=== PATIENT | male | born 1985 | race Caucasian/White ===

== ENCOUNTER 2018-07-16 04:27 | Emergency (ER) | payer OTHER, SELFPAY ==
[2018-07-16 04:29] VITALS: BP 143/95; PULSE 92; RESP 16; TEMP 36.5; O2SAT 98
--- NOTE | 2018-07-16 04:39 | ED.GENADUL_ITS ---
Discharge Plan Disposition Patient Disposition: HOME Condition: Stable Discharge Details Chief Complaint: Sorethroat Clinical Impression: Pharyngitis Primary Care Provider: Maricarmen Osorio ED Provider: Rachel Driver Home Meds and New Rx's Prescriptions: New amoxicillin 500 mg tablet 500 mg PO BID 10 Days Qty: 20 RF: 0 Continued albuterol sulfate [ProAir HFA] 90 mcg/actuation Hfa Aerosol Inhaler 2 puff Inhalation PRN PRNRF: 0 naproxen sodium [Aleve] 220 mg Tablet 220 mg PO BID PRNRF: 0 Discharge Instructions Instructions: Pharyngitis (ED) Additional Instructions: Alternate Tylenol and Motrin as needed and directed for pain. If you have no improvement of symptoms in the next 2 days, you may start the antibiotics. Gargle with salt water and drink plenty of fluids and get plenty of rest. Follow-up with your primary care doctor in 2 days for reevaluation. Return immediately to the emergency department with any worsening or new concerning symptoms. Stand Alone Forms: Work Release Discharge Data Discharge Physician: Rachel Driver Medical Decision Making 33-year-old male presents with sore throat for the past 3 days. No known fever. No significant cough. Blood pressure mildly hypertensive. Heart rate 90s. Afebrile. Patient appears nontoxic. He is able to speak in full sentences, no drooling, no trismus, no submandibular swelling. He does have posterior pharyngeal erythema and mild to moderate bilateral tonsillar swelling but no evidence of tonsillar abscess and uvula is midline. He has left tender anterior cervical lymphadenopathy. Rapid strep is negative. I suspect based on patient's exam, he likely does have strep throat. Throat culture sent. Patient was given a prescription for antibiotics to start if symptoms not improve or worsen. He states he likely plans on starting the antibiotics now. He is instructed to follow with his primary care doctor for reevaluation and to return here if worse. Medical Records Medical records reviewed: Yes I reviewed the patient's medical records. Lab Data Lab results reviewed: Yes I reviewed the patient's lab results. Rapid strep negative. HPI General Mode of arrival: ambulatory . Date/Time Provider Initiated Documentation: 07/16/18 04:36 . Limitations to Documentation: no limitations . Information obtained by: patient . HPI Narrative: Patient is a 33-year-old male presents with sore throat for the past few days. Admits to pain with swallowing but has been able to eat and drink. He denies any known fever. Last dose of ibuprofen 9:00 last night. Related Data Home Medications Medication Instructions Recorded Confirmed albuterol sulfate [ProAir HFA] 2 puff INHALATION PRN PRN 07/16/18 07/16/18 amoxicillin 500 mg PO BID 10 Days #20 tab 07/16/18 naproxen sodium [Aleve] 220 mg PO BID PRN 07/16/18 07/16/18 Previous Rx's Medication Instructions Recorded amoxicillin 500 mg PO BID 10 Days #20 tab 07/16/18 Allergies Allergy/AdvReac Type Severity Reaction Status Date / Time No Known Allergies Allergy Unverified 07/16/18 04:31 General Stated Complaint: Sorethroat COLT: 4 Review of Systems Review of Systems All systems reviewed & are unremarkable except as noted in HPI and below Constitutional Reports as per HPI, Denies chills and Denies fever(s) Eyes Denies blurry vision ENT Denies dizziness, Reports sore throat and Denies throat swelling Cardiovascular Denies chest pain and Denies dyspnea Respiratory Denies cough and Denies dyspnea Gastrointestinal Denies abdominal pain, Denies diarrhea and Denies vomiting Genitourinary Denies hematuria and Denies dysuria Musculoskeletal Denies back pain and Denies numbness Integumentary/Breasts Denies lesions and Denies rash Neurologic Denies dizziness, Denies focal weakness and Denies numbness Allergic/Immunologic Denies throat swelling PFSH Medical History Asthma (Chronic) Surgical History No significant past surgical history (Acute) Social History Smoking/Tobacco Use Status: Current every day Tobacco Type: cigarettes Alcohol Intake: current Alcohol Intake frequency: holidays/special occasions only Substance use type: does not use Exam Const General: cooperative and healthy appearing Orientation: alert and awake HENMT Head: normal to inspection Ears: hearing grossly normal bilaterally, external ears normal and TM's normal bilaterally General nose exam: external nose normal Face and sinus: normal facial exam Mouth: oral mucosae normal Teeth and gingiva: dentition normal Throat: uvula midline, no peritonsillar masses and posterior oropharynx abnormal edema and erythema; no exudates Eyes General: appearance normal, both eyes and all related structures Eyelids: eyelids normal Pupils: PERRL EOM: EOM intact bilaterally Neck Neck: normal visual inspection and lymphadenopathy (L anterior cervical tender) Chest Chest: normal inspection of the chest Resp Effort & Inspection: normal respiratory effort and able to speak in complete sentences Auscultation: clear to auscultation bilaterally Cardio Rate: regular rate Rhythm: regular rhythm GI Inspection: normal to inspection Palpation: soft, not firm, no guarding, no hepatosplenomegaly, no masses and nontender Auscultation: normal bowel sounds Skin General skin exam: no rashes or lesions noted Neuro General: alert and awake Cognition: normal cognition Speech: speech normal Gait: normal gait Motor: muscle tone normal throughout Sensory Exam: no sensory deficits noted Extrem General: normal to inspection, full ROM and normal capillary refill Psych Appearance: grossly normal Mental Status: mental status grossly normal Speech and Movement: speech and movement normal Affect: normal affect Thought Process: normal Course Vital Signs Temperature 97.7 F 07/16/18 04:29 Pulse 92 H 07/16/18 04:29 Respiratory Rate 16 07/16/18 04:29 Blood Pressure 143/95 H 07/16/18 04:29 Pulse Oximetry 98 07/16/18 04:29 Temperature 97.7 F 07/16/18 04:29 Temperature Source Skin 07/16/18 04:29 Pulse 92 H 07/16/18 04:29 Respiratory Rate 16 07/16/18 04:29 Respiratory Effort Non-Labored 07/16/18 04:32 Blood Pressure 143/95 H 07/16/18 04:29 Blood Pressure Position Sitting 07/16/18 04:29 Pulse Oximetry 98 07/16/18 04:29 Oxygen Delivery Method Room Air 07/16/18 04:29 Oxygen Flow Rate 0 07/16/18 04:29 Pain Level 7 07/16/18 04:29 Comment 07/16/18 04:29
[2018-07-16] MEDS: Ibuprofen 600 MG TAB PO (04:41)
== END 2018-07-16 04:46 | disposition home or self-care (01) ==
LOC: ER 04:55
PROVIDERS: Emergency Provider Physician Assistant; PCP Nurse Practitioner
DX: J02.9 Acute pharyngitis, unspecified (principal); F17.210 Nicotine dependence, cigarettes, uncomplicated
CPT/HCPCS: 87880; 99283; 87081

== ENCOUNTER 2020-05-23 11:10 | Outpatient (REF) | payer OTHER, SELFPAY ==
[2020-05-24 18:35] LABS: COVID-19 RT-PCR UVMMC Result Negative (Negative)
== END 2020-05-23 11:30 ==
LOC: NCHCN 11:10
PROVIDERS: PCP Nurse Practitioner; Visit Provider Nurse Practitioner Family
DX: Z20.822 Contact with and (suspected) exposure to COVID-19 (principal)
CPT/HCPCS: U0003